=== PATIENT | male | born 1990 | race Caucasian/White ===

== ENCOUNTER 2017-09-03 14:14 | Emergency (ER) | payer OTHER ==
[~2017-09-03] VITALS: Ht 180.3 cm; Wt 79.4 kg
[~2017-09-03 14:14] MED LIST: NOHOMEMEDICATIONS; NORCO 5-325 TA1 EACH PO
[2017-09-03] MEDS ORDERED: AMOXICILLIN875 MG PO (14:30)
== END 2017-09-03 14:40 | disposition home or self-care (01) ==
LOC: M.ERS 14:14
DX: S20.419A Abrasion of unspecified back wall of thorax, initial encounter (principal); K05.10 Chronic gingivitis, plaque induced; F17.200 Nicotine dependence, unspecified, uncomplicated; Z88.8 Allergy status to other drugs, medicaments and biological substances; W57.XXXA Bitten or stung by nonvenomous insect and other nonvenomous arthropods, initial encounter; Y93.89 Activity, other specified; Y92.89 Other specified places as the place of occurrence of the external cause; Y99.8 Other external cause status

== ENCOUNTER 2017-12-22 02:54 | Emergency (ER) | payer OTHER ==
[~2017-12-22] VITALS: Ht 180.3 cm; Wt 65.8 kg
[~2017-12-22 02:54] MED LIST changes: +AMOXICILLIN875 MG PO
[2017-12-22 04:16] LABS: URINE BILIRUBIN NEGATIVE (Negative); URINE BLOOD NEGATIVE (Negative); URINE CLARITY CLEAR; URINE COLOR YELLOW; URINE GLUCOSE-RANDOM NEGATIVE (Negative); URINE KETONES NEGATIVE (Negative); URINE LEUKOCYTES-REFLEX TRACE (Negative); URINE NITRITE-REFLEX NEGATIVE (Negative); URINE PROTEIN TRACE (Negative); URINE SPECIFIC GRAVITY >= 1.030 (1.005-1.030); URINE UROBILINOGEN 0.2 E.U./dl (0.2-1.0)
[2017-12-22 05:22] LABS: CASTS None Seen /LPF (None Seen); SQUAMOUS 4-10 Moderate /LPF (0-3); URINE RBC None Seen /HPF (0-2); URINE WBC-REFLEX 6-15 Few /HPF (0-5)
[2017-12-22 05:23] LABS: BACTERIA-REFLEX 1-9 Few /HPF (None Seen); CRYSTALS None Seen /LPF (None Seen)
[2017-12-22] MEDS ORDERED: CIPROFLOXACIN500 M1 PO (05:27)
[2017-12-22 05:32] VITALS: BP 141/87
== END 2017-12-22 05:35 | disposition home or self-care (01) ==
LOC: M.ERS 02:54
PROVIDERS: Emergency Medicine
DX: R10.32 Left lower quadrant pain (principal); R19.7 Diarrhea, unspecified

== ENCOUNTER 2019-02-15 13:19 | Emergency (ER) | payer OTHER ==
[~2019-02-15] VITALS: Ht 182.9 cm; Wt 65.8 kg
[~2019-02-15 13:19] MED LIST changes: +CIPROFLOXACIN500 M1 PO
[2019-02-15 14:14] VITALS: BP 120/80
== END 2019-02-15 14:15 | disposition home or self-care (01) ==
LOC: M.ERS 13:19
DX: J02.0 Streptococcal pharyngitis (principal); F17.210 Nicotine dependence, cigarettes, uncomplicated; Z88.8 Allergy status to other drugs, medicaments and biological substances